=== PATIENT | male | born 1995 | race Hispanic/Latino ===

== ENCOUNTER 2017-02-16 15:33 | Emergency (ER) | payer MEDICAID, OTHER ==
[2017-02-16 15:48] VITALS: BP 123/71; PULSE 69; RESP 19; TEMP 98.2; O2SAT 98; BMI 25.7
[2017-02-16] MEDS ORDERED: TDAP Vaccine 0.5 mL Syr IM ONE (16:37)
[2017-02-16] MEDS ORDERED: Tobramycin 0.3% OPHT SOLN OD STA (16:38)
[2017-02-16] MEDS ORDERED: Naproxen 550 mg Tab PO STA (16:44)
--- NOTE | 2017-02-16 16:45 | ED PDOC ---
Arrival/HPI - General Chief Complaint: Eye Problem Time Seen by Provider: 02/16/17 15:57 Historian: Patient - History of Present Illness Narrative History of Present Illness (Text): 02/16/17 17:48 21 yo M c/o FB sensation to the R eye x 1 day. States at work today a small piece of metal flew into his R eye despite wearing protective eye wear. States that he flushed his eye however with no improvement of his symptoms. Denies any decrease in his vision, contact lens wear, or any other injuries. Past Medical History - Provider Review Nursing Documentation Reviewed: Yes - Past History Past History: No Previous - Infectious Disease Hx of Infectious Diseases: None - Tetanus Immunization Tetanus Immunization: Unknown - Past Medical History Past Medical History: No Previous - Cardiac Hx Cardiac Disorders: No - Pulmonary Hx Asthma: No - Neurological Hx Neurological Disorder: No - HEENT Hx HEENT Disorder: No - Renal Hx Renal Disorder: No - Endocrine/Metabolic Hx Endocrine Disorders: No - Hematological/Oncological Hx Blood Disorders: No - Integumentary Hx Dermatological Disorder: No - Musculoskeletal/Rheumatological Hx Musculoskeletal Disorders: No Hx Falls: No - Gastrointestinal Hx Gastrointestinal Disorders: No - Genitourinary/Gynecological Hx Genitourinary Disorders: No - Psychiatric Hx Anxiety: Yes Hx Bipolar Disorder: Yes Hx Depression: Yes Hx Substance Use: No - Anesthesia Hx Anesthesia: Yes Hx Anesthesia Reactions: No - Suicidal Assessment Feels Threatened In Home Enviroment: No Family/Social History - Physician Review Nursing Documentation Reviewed: Yes Family/Social History: No Known Family HX Smoking Status: Light Smoker < 10 Cigarettes Daily Hx Alcohol Use: Yes Amount per day: 12 Hx Substance Use: No Allergies/Home Meds Allergies/Adverse Reactions: Allergies No Known Allergies Allergy (Verified 02/16/17 15:48) Home Medications: Home Meds Medication Instructions Recorded Confirmed No Known Home Med 11/20/15 02/16/17 Review of Systems - Review of Systems Constitutional: Normal. absent: Fatigue, Weight Change, Fevers Eyes: Normal, Eye Pain, Other (FB sensation to the R eye). absent: Vision Changes, Photophobia ENT: Normal. absent: Hearing Changes, Tinnitus, Sinus Congestion Skin: Normal. absent: Rash, Pruritis, Skin Lesions Physical Exam Vital Signs Reviewed: Yes Vital Signs Temp Pulse Resp BP Pulse Ox 02/16/17 15:48 98.2 F 69 19 123/71 98 Temperature: Afebrile Blood Pressure: Normal Pulse: Regular Respiratory Rate: Normal Appearance: Positive for: Well-Appearing, Comfortable Pain Distress: Mild Mental Status: Positive for: Alert and Oriented X 3 - Systems Exam Head: Present: Atraumatic, Normocephalic Pupils: Present: PERRL, Other (Visual acuity : R eye 20/20, L eye 20/20) Extroacular Muscles: Present: EOMI Conjunctiva: Present: Normal, Injected (R eye), Other (R eye : flourescein stain applied to the eye, (+) corneal abrasion noted at 12 o'clock, upper eye lid was everted with (+) FB noted) Skin: Present: Warm, Dry, Normal Color. No: Rashes Medical Decision Making ED Course and Treatment: 02/16/17 16:45 21 yo M c/o FB sensation to the R eye x 1 day. Plan: - Tdap IM - Tobramycin eye drops - Visual acuity 02/16/17 17:52 FB from the upper eyelid was removed by PA using a Qtip, with significant improvement of his symptoms. Tobramycin eye drops applied to the R eye. Pt advised to follow up with ophthalmology referral provided in 1-2 days without fail. Continue tobramycin eye drops as instructed. Return to the ER at any time for any new or worsening symptoms. - Medication Orders Current Medication Orders: Discontinued Medications Naproxen (Anaprox Ds) 550 mg PO ONCE STA Stop: 02/16/17 16:45 Last Admin: 02/16/17 17:07 Dose: 550 mg Tetanus/Reduced Diphtheria/Acell Pertussis (Boostrix Vaccine Inj) 0.5 ml IM .ONCE ONE Stop: 02/16/17 16:38 Last Admin: 02/16/17 17:08 Dose: 0.5 ml Tobramycin Sulfate (Tobrex 0.3% Ophth Soln) 2 drop OD STAT STA Stop: 02/16/17 16:39 Last Admin: 02/16/17 17:07 Dose: 2 drop - PA / RETAIL CONSULTANT / Resident Statement /DO has reviewed & agrees with the documentation as recorded. Disposition/Present on Arrival - Present on Arrival Any Indicators Present on Arrival: No History of DVT/PE: No History of Uncontrolled Diabetes: No Urinary Catheter: No History of Decub. Ulcer: No History Surgical Site Infection Following: None - Disposition Have Diagnosis and Disposition been Completed?: Yes Diagnosis: Corneal abrasion, Foreign body, eye Disposition: HOME/ ROUTINE Disposition Time: 16:30 Patient Plan: Discharge Patient Problems: Current Active Problems Problem Status Onset Corneal abrasion Acute Foreign body, eye Acute Condition: STABLE Discharge Instructions (ExitCare): Corneal Abrasion (ED), Eye Foreign Body (ED ) Print Language: INDONESIAN Additional Instructions: Follow up with eye doctor in 2 days for re-evaluation. Continue applying tobramycin eye drops to the R eye, 2 drops every 6 hours for 7 days. Return to the ER at any time for any new or worsening symptoms. Referrals: Sergio Luna MD [Staff Provider] - Follow up with primary Forms: WORK NOTE
== END 2017-02-16 18:00 | disposition home or self-care (01) ==
LOC: ED 15:33
DX: T15.01XA Foreign body in cornea, right eye, initial encounter (principal); W22.8XXA Striking against or struck by other objects, initial encounter; Y93.89 Activity, other specified; Y92.69 Other specified industrial and construction area as the place of occurrence of the external cause; Y99.0 Civilian activity done for income or pay; Z23 Encounter for immunization

== ENCOUNTER 2017-05-01 07:49 | Emergency (ER) | payer SELFPAY ==
[2017-05-01 07:49] VITALS: BMI 25.7
== END 2017-05-01 07:59 | disposition left against medical advice (07) ==
LOC: ED 07:49
DX: Z02.89 Encounter for other administrative examinations (principal); F10.129 Alcohol abuse with intoxication, unspecified

== ENCOUNTER 2017-05-02 10:38 | Emergency (ER) | payer SELFPAY ==
[2017-05-02 10:55] VITALS: RESP 18; TEMP 98.8; O2SAT 100; BMI 25.0
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
[2017-05-02] MEDS ORDERED: Amoxicillin-Clav 875-125 mg Tab PO STA (11:30)
--- NOTE | 2017-05-02 12:33 | RAD ---
PROCEDURE: Left Ankle Radiographs. HISTORY: ankle pain s/p injury COMPARISON: None FINDINGS: BONES: Normal. No fracture. There is a small bone island in the distal tibia JOINTS: Normal. No osteoarthritis. Ankle mortise maintained. Talar dome intact SOFT TISSUES: Normal. OTHER FINDINGS: None. IMPRESSION: Normal left ankle radiographs.
[2017-05-02 13:05] VITALS: BP 132/70; PULSE 79
== END 2017-05-02 13:04 | disposition home or self-care (01) ==
LOC: ED 10:38
DX: S01.81XA Laceration without foreign body of other part of head, initial encounter (principal); Y04.0XXA Assault by unarmed brawl or fight, initial encounter; L08.9 Local infection of the skin and subcutaneous tissue, unspecified; M25.572 Pain in left ankle and joints of left foot
CPT/HCPCS: 73610; 96372; 99283; J1885